=== PATIENT | male | born 1970 | race Caucasian/White ===

== ENCOUNTER 2021-12-10 15:31 | Emergency (ER) | payer OTHER ==
[~2021-12-10 15:31] MED LIST: BACTROBAN OINT22 GM EXT
[2021-12-10 16:27] LABS: HEMOGLOBIN 14.8 gm/dl (14.0-17.5); RED BLOOD COUNT 4.57 M/UL (4.20-5.50); WHITE BLOOD COUNT 16.9 K/UL (4.5-11.0)
[2021-12-10 16:51] LABS: BUN/CREATININE RATIO 14 (0-10)
[2021-12-10] MEDS ORDERED: VIBRAMYCIN 100100 MG PO (17:32)
== END 2021-12-10 17:43 | disposition home or self-care (01) ==
LOC: ER1 15:31
PROVIDERS: Nurse Practitioner
DX: L03.113 Cellulitis of right upper limb (principal); M70.21 Olecranon bursitis, right elbow
CPT/HCPCS: 73070; 80053; 85025; 85652; 86140; 99283